=== PATIENT | female | born 1955 | race Caucasian/White ===

== ENCOUNTER → 2016-11-29 | Outpatient (CLI) | payer BC ==
[~2016-11-29] MED LIST: ASPEC325 PO; AZITTAB PO; CBCI IV; CZR50 PO; DULO-24 PO; FLUT0.15 NAE; INDA2.5T PO; LORA-741 PO; LOSA1TAB38 PO; MONT1TAB3 PO; OMG3 PO; OXYSR10 PO; PARO1TAB27 PO; PLMIN90 INH; PRLSR20 PO; PRVHFAIN INH; RFM300 PO; RXC5 PO; TRAZ100T29 PO; VTMD1000 PO
--- NOTE | 2016-11-30 08:27 | MAMMOGRAPHY REPORT ---
BILATERAL DIGITAL SCREENING MAMMOGRAM WITH CAD: 11/29/2016 CLINICAL HISTORY: Routine screening. Patient has no complaints. TECHNIQUE: Bilateral CC, MLO and repeat right MLO views were obtained. Current study was also evalu ated with a Computer Aided Detection (CAD) system. COMPARISON: Comparison is made to exams dated: 11/24/2015 mammogram, 10/21/2015 ultrasound, 08/05/2015 ultrasound, 08/05/2015 mammogram, 11/18/2014 mammogram, and 10/24/2013 mammogram - [facility]. BREAST COMPOSITION: There are scattered areas of fibroglandular density in both breasts. FINDINGS: No new suspicious mass, architectural distortion or cluster of microcalcifications is see n bilaterally. IMPRESSION: ACR BI-RADS CATEGORY 1: NEGATIVE There is no mammographic evidence of malignancy. A 1 year screening mammogram is recommended. The p atient will receive written notification of the results. Approximately 10% of breast cancers are not detected with mammography. A negative mammographic repor t should not delay biopsy if a clinically suggestive mass is present. Marita Gilliam M.D. ay/:11/29/2016 15:42:54 [employer] Agent: Radhika YOUSIF(Kade)(M), [facility] letter sent: Normal 1/2 BI-RADS Code: ACR BI-RADS Category 1: Negative
== END | disposition home or self-care (01) ==
LOC: C.MAMM 09:56
PROVIDERS: ATTEND Obstetrics & Gynecology
DX: Z12.31 Encounter for screening mammogram for malignant neoplasm of breast (principal)

== ENCOUNTER 2017-05-07 09:47 | Emergency (ER) | payer BC ==
[~2017-05-07] VITALS: Ht 154.9 cm; Wt 97.1 kg
[~2017-05-07 09:47] MED LIST changes: -AZITTAB PO; -DULO-24 PO; -INDA2.5T PO; -LORA-741 PO; -LOSA1TAB38 PO
[2017-05-07 09:56] VITALS: TEMP 36.9; Ht 154.9 cm; Wt 97.1 kg
[2017-05-07] MEDS ORDERED: SODIUM CHLORIDE 0.9% 1000ML 1,000 ML IV STA (10:18)
[2017-05-07] MEDS ORDERED: LIDOCAINE/EPINEPH/TETRACAINE 1 EA SYR EXT STA (10:18)
[2017-05-07] MEDS ORDERED: SODIUM CHLORIDE 0.9% 1000ML 1,000 ML IV ONE (10:18)
[2017-05-07] MEDS ORDERED: LOSA1TAB38 PO (10:25)
[2017-05-07] MEDS ORDERED: DULO-24 PO (10:26)
[2017-05-07] MEDS ORDERED: INDA2.5T PO (10:26)
[2017-05-07] MEDS ORDERED: LORA-741 PO (10:27)
[2017-05-07 11:07] LABS: HEMATOCRIT 40.8 % (37-47); MEAN CELL VOLUME 92.1 fL (80-100); MEAN CORPUSCULAR HEMOGLOBIN 31.6 pg (25-34); MEAN CORPUSCULAR HGB CONC 34.3 g/dl (32-36); MEAN PLATELET VOLUME 9.4 fL (7.4-10.4); PLATELET COUNT 214 K/uL (130-400); RED BLOOD COUNT 4.43 M/uL (4.2-5.4); WHITE BLOOD COUNT 10.75 K/uL (4.8-10.8)
--- NOTE | 2017-05-07 11:11 | DIAGNOSTIC IMAGING REPORT ---
CHEST ONE VIEW PORTABLE CLINICAL HISTORY: 61 years-old Female presenting with CHEST PAIN. TECHNIQUE: Portable upright AP view of the chest was obtained. COMPARISON: 04/16/2015. FINDINGS: Mild prominence of the cardiomediastinal silhouette in part due to mildly low lung volumes. Minimal hazy bibasilar opacities. No other focal infiltrate. No large effusion or pneumothorax. Osseous structures normal. Upper abdomen normal. IMPRESSION: 1. Mildly low lung volumes with hypoventilatory changes. No focal infiltrate. Electronically signed by: Mason Lynch M.D. 05/07/2017 11:10 AM Dictated Date/Time: 05/07/2017 11:09 AM
[2017-05-07 11:15] LABS: PROTHROMBIN TIME (PATIENT) 10.6 SECONDS (9.0-12.0)
[2017-05-07 11:23] LABS: BUN/CREATININE RATIO 19.9 (10-20); CALCIUM 9.2 mg/dl (8.5-10.1); CREATININE 0.83 mg/dl (0.60-1.20); POTASSIUM 3.3 mmol/L (3.5-5.1)
--- NOTE | 2017-05-07 11:23 | DIAGNOSTIC IMAGING REPORT ---
HEAD WITHOUT CONTRAST (CT) CLINICAL HISTORY: 61 years-old Female presenting with eval for trauma, dizziness, fall. TECHNIQUE: Multidetector CT imaging of the head was performed without the use of intravenous contrast. IV contrast: None. A dose lowering technique was used consistent with the principles of ALARA (as low as reasonably achievable). COMPARISON: None. CT DOSE (mGy.cm): The estimated cumulative dose is 614.27 mGy.cm. 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 Ventricles and sulci normal in size. Brain parenchyma normal in appearance with preserved holliday-white differentiation. No mass effect or midline shift. No hemorrhage or acute territorial infarct. No extra-axial fluid collection. Mild mucosal thickening in the bilateral maxillary sinuses with postsurgical changes likely of uncinectomies. Small focus of gas with associated irregularity of the cutis and minimal infiltration overlying the right frontal region. IMPRESSION: 1. No acute intracranial pathology. 2. Laceration and minimal superficial soft tissue contusion over the right frontal region. Electronically signed by: Mason Lynch M.D. 05/07/2017 11:22 AM Dictated Date/Time: 05/07/2017 11:19 AM
[2017-05-07 11:31] LABS: CKMB/CK RATIO 0.6 (0-3.0)
[2017-05-07 11:35] LABS: BASO % 0.2 %; BASO ABS # 0.02 K/uL (0-0.2); COMPLETE YES; EOS % 2.6 %; IG% 0.3 %; LYMPH % 20.8 %; LYMPH ABS # 2.24 K/uL (1.2-3.4); MONO % 6.1 %
[2017-05-07 12:19] VITALS: BP 161/106; PULSE 94; O2SAT 98
[2017-05-07] MEDS ORDERED: POTASSIUM CHLORIDE 10 MEQ TABCR PO STA (12:44)
[2017-05-07] MEDS ORDERED: AZITHROMYCIN 250 MG TAB PO ONE (12:45)
[2017-05-07] MEDS ORDERED: AZITTAB PO (12:48)
--- NOTE | 2017-05-07 15:43 | EMERGENCY ROOM VISIT NOTE ---
History Report prepared by Daniel: Jessy Sapp Under the Supervision of: Dr. Ezequiel Burgess M.D. First contact with patient: 10:08 Chief Complaint: DIZZY Stated Complaint: LAC ON L EYEBROW, ABNORMAL EKG Nursing Triage Summary: triage note: pt reports she has hx of vertigo. pt reports she got up this morning and became dizzy and fell. pt reports she fell onto the floor and has a cut on her forehead. pt reports she went to [facility] and they sent her to ed for further eval. pt reports she has had a cold for the past week and anytime she gets sick she has increased dizziness. History of Present Illness The patient is a 61 year old female who presents to the Emergency Room with complaints of constant dizziness beginning this morning. The patient states that she has a history of vertigo after a head injury a few years ago. She reports that she developed a cold 1 week ago and this morning she woke up and had an episode of dizziness and fell onto her face. She notes that she has a laceration on her forehead. The patient complains of a constant cough, congestion, and runny nose. She denies any LOC, shortness of breath, numbness, ear ache, weakness, chest pain, shortness of breath. The patient states that she went to [facility] and they sent her here to the ED after an abnormal EKG. She denies any history of blood clots and states that she does have a history of asthma. She notes that she did have palpitations earlier this year and had a Holter monitor test that was normal. Her tetanus shows up-to-date. Source of History: patient, transfer records, spouse/significant other Onset: this morning Position: other (global) Quality: other (dizziness) Timing: constant Associated Symptoms: No LOC, No sorethroat, No chest pain, No SOB, No weakness, No numbness Note: Pt complains of congestion, runny nose, fall, and laceration. She denies any ear ache. Review of Systems See HPI for pertinent positives & negatives. A total of 10 systems reviewed and were otherwise negative. 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 Nurse's notes were reviewed and I agree with. Family History Diabetes mellitus FHx: cancer Social History Smoking Status: Never Smoker Drug Use: none Marital Status: Housing Status: lives with family Occupation Status: employed Current/Historical Medications Scheduled Azithromycin (Zithromax Z-Paresh), 0 PO UD Budesonide (Pulmicort Flexhaler), 1 PUFF INH QAM Duloxetine HCl (Cymbalta), 40 MG PO HS Fish Oil (Fish Oil), 1 GM PO HS Fluticasone Propionate (Nasal) (Flonase Allergy Relief), 2 SPRAY NICK QAM Indapamide (Indapamide), 2.5 MG PO QAM Lorazepam (Ativan), 0.5 MG PO HS Losartan Potassium (Cozaar), 100 MG PO HS Montelukast Sodium (Singulair), 10 MG PO HS Omeprazole (Prilosec), 20 MG PO HS Trazodone Hcl (Trazodone), 150 MG PO HS Scheduled PRN Albuterol (Ventolin Hfa), 2 PUFF INH Q4 PRN for SOB/Wheezing Allergies Coded Allergies: Acetaminophen (Verified Allergy, Intermediate, SEVERE ITCHING AND NAUSEA, 05/07/17) Cephalexin (Verified Allergy, Intermediate, rash and itching, 05/07/17) Penicillins (Verified Allergy, Intermediate, rash and itching, 05/07/17) Physical Exam Vital Signs Date Time Temp Pulse Resp B/P (MAP) Pulse Ox O2 Delivery O2 Flow Rate FiO2 05/07/17 12:19 94 18 161/106 98 Room Air 05/07/17 09:56 36.9 90 18 170/97 92 Room Air Physical Exam General: Non-ill appearing middle aged female in no acute distress. HEENT: 4cm laceration to the right forehead within the right eyebrow. Pupils are equal round and reactive to light. Sclerae anicteric. Extraocular movements are intact. Oropharynx is pink with moist mucous membranes. No swelling of the mouth lips or tongue. Neck: Supple with a midline trachea. No meningeal signs or stiffness, no JVD or bruits. No Stridor. Chest: Clear to auscultation bilaterally. No wheezes or rhonchi. No increased work of breathing. Heart: regular rate and rhythm. Abdomen: Soft nontender, nondistended without rebound guarding or rigidity. Extremities: No cyanosis clubbing or edema. No calf tenderness or assymetry Spine/Back. Non tender to palpation. No CVA tenderness Skin: Good turgor without rashes. Neurologic exam: Cranial nerves two through 12 are intact. Motor and sensation are intact and symmetrical throughout. No tremor. 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 Ventricles and sulci normal in size. Brain parenchyma normal in appearance with preserved holliday-white differentiation. No mass effect or midline shift. No hemorrhage or acute territorial infarct. No extra-axial fluid collection. Mild mucosal thickening in the bilateral maxillary sinuses with postsurgical changes likely of uncinectomies. Small focus of gas with associated irregularity of the cutis and minimal infiltration overlying the right frontal region. IMPRESSION: 1. No acute intracranial pathology. 2. Laceration and minimal superficial soft tissue contusion over the right frontal region. Electronically signed by: Mason Lynch M.D. 05/07/2017 11:22 AM Dictated Date/Time: 05/07/2017 11:19 AM CHEST ONE VIEW PORTABLE FINDINGS: Mild prominence of the cardiomediastinal silhouette in part due to mildly low lung volumes. Minimal hazy bibasilar opacities. No other focal infiltrate. No large effusion or pneumothorax. Osseous structures normal. Upper abdomen normal. IMPRESSION: 1. Mildly low lung volumes with hypoventilatory changes. No focal infiltrate. Electronically signed by: Mason Lynch M.D. 05/07/2017 11:10 AM Dictated Date/Time: 05/07/2017 11:09 AM Laboratory Results 05/07/17 10:55 Red Blood Count 4.43, Mean Corpuscular Volume 92.1, Mean Corpuscular Hemoglobin 31.6, Mean Corpuscular Hemoglobin Concent 34.3, Mean Platelet Volume 9.4, Neutrophils (%) (Auto) 70.0, Lymphocytes (%) (Auto) 20.8, Monocytes (%) (Auto) 6.1, Eosinophils (%) (Auto) 2.6, Basophils (%) (Auto) 0.2, Neutrophils # (Auto) 7.52, Lymphocytes # (Auto) 2.24, Monocytes # (Auto) 0.66, Eosinophils # (Auto) 0.28, Basophils # (Auto) 0.02 05/07/17 10:55 Test 05/07/17 10:41 05/07/17 10:55 05/07/17 10:59 Influenza Type A Antigen Neg for Influ A (NEG) Influenza Type B Antigen Neg for Influ B (NEG) White Blood Count 10.75 K/uL (4.8-10.8) Red Blood Count 4.43 M/uL (4.2-5.4) Hemoglobin 14.0 g/dL (12.0-16.0) Hematocrit 40.8 % (37-47) Mean Corpuscular Volume 92.1 fL (80-100) Mean Corpuscular Hemoglobin 31.6 pg (25-34) Mean Corpuscular Hemoglobin Concent 34.3 g/dl (32-36) Platelet Count 214 K/uL (130-400) Mean Platelet Volume 9.4 fL (7.4-10.4) Neutrophils (%) (Auto) 70.0 % Lymphocytes (%) (Auto) 20.8 % Monocytes (%) (Auto) 6.1 % Eosinophils (%) (Auto) 2.6 % Basophils (%) (Auto) 0.2 % Neutrophils # (Auto) 7.52 K/uL (1.4-6.5) Lymphocytes # (Auto) 2.24 K/uL (1.2-3.4) Monocytes # (Auto) 0.66 K/uL (0.11-0.59) Eosinophils # (Auto) 0.28 K/uL (0-0.5) Basophils # (Auto) 0.02 K/uL (0-0.2) RDW Standard Deviation 46.4 fL (36.4-46.3) RDW Coefficient of Variation 13.7 % (11.5-14.5) Immature Granulocyte % (Auto) 0.3 % Immature Granulocyte # (Auto) 0.03 K/uL (0.00-0.02) Prothrombin Time 10.6 SECONDS (9.0-12.0) Prothromb Time International Ratio 1.0 (0.9-1.1) Activated Partial Thromboplast Time 26.8 SECONDS (21.0-31.0) Partial Thromboplastin Ratio 1.0 Anion Gap 8.0 mmol/L (3-11) Est Creatinine Clear Calc Drug Dose 76.8 ml/min Estimated GFR () 88.8 Estimated GFR (Non- 76.6 BUN/Creatinine Ratio 19.9 (10-20) Calcium Level 9.2 mg/dl (8.5-10.1) Total Bilirubin 0.4 mg/dl (0.2-1) Direct Bilirubin 0.1 mg/dl (0-0.2) Aspartate Amino Transf (AST/SGOT) 27 U/L (15-37) Alanine Aminotransferase (ALT/SGPT) 33 U/L (12-78) Alkaline Phosphatase 83 U/L (45-117) Total Creatine Kinase 422 U/L (26-192) Creatine Kinase MB 2.7 ng/ml (0.5-3.6) Creatine Kinase MB Ratio 0.6 (0-3.0) Total Protein 8.0 gm/dl (6.4-8.2) Albumin 3.9 gm/dl (3.4-5.0) Lipase 147 U/L (73-393) Bedside Troponin I < 0.030 ng/ml (0-0.045) Laboratory studies as stated above per my review. Medications Administered Medications (Trade) Dose Ordered Sig/Luana Route Start Time Stop Time Status Last Admin Dose Admin Sodium Chloride 1,000 ml @ 999 mls/hr Q1H1M STAT IV 05/07/17 10:18 05/07/17 11:19 DC 05/07/17 10:18 999 MLS/HR Sodium Chloride 1,000 ml @ 150 mls/hr Q6H40M ONCE IV 05/07/17 10:18 05/07/17 13:35 DC 05/07/17 12:19 150 MLS/HR Tetracaine/ Epinephrine/ Lidocaine (L.e.t. Gel 4%/ 1:100/0.5%) 1 ea NOW STAT EXT 05/07/17 10:18 05/07/17 10:22 DC 05/07/17 10:34 1 EA Azithromycin (Zithromax Tab) 500 mg NOW ONCE PO 05/07/17 12:45 05/07/17 12:46 DC 05/07/17 12:58 500 MG Potassium Chloride (Klor-Con M10) 40 meq NOW STAT PO 05/07/17 12:44 05/07/17 12:46 DC 05/07/17 12:58 40 MEQ Procedure Location: Face Total length: 4cm Complexity: Simple Verbal consent was obtained after the risks and benefits were explained, including but not limited to bleeding, scarring, infection, pain, and bone/joint /nerve damage. At this time, the risks of the procedure are less than the risks of NOT performing the procedure. A time out was taken and the correct patient and site identified. The skin was prepped with betadine. The target area was anesthetized with L.e.t gel. Copious irrigation was performed using normal saline. The skin was re-prepped with betadine and a sterile field set. The wound was explored for foreign bodies and none found. Examination revealed no injury to deep structures such as tendons, bone, or significant blood vessels. Debridement was not performed. The wound edges were approximated using 8, 5-0 simple interrupted nylon sutures. Hemostasis and excellent approximation was achieved. Antibacterial ointment and a sterile dressing applied. Detailed wound care instructions and signs and symptoms of infection reviewed with the patient. No complications and the patient tolerated the procedure well. ECG Indication: weakness Rate (beats per minute): 84 Rhythm: normal sinus Findings: PVC, Q waves (old in lead 3), other (short NM interval, nonspecific T wave abnormalities) Comparison ECG Date: 04/16/2017 Change: no significant change Change: EKG from [employer]: Normal Sinus, 72, Q wave in lead 3, T wave inversions anteriorly, compared to 04/16/2017 T wave inversions are slightly more pronounced. ED Course 1008: Past medical records reviewed. The patient was evaluated in room B4, and a complete history and physical examination were performed. 1018: Let Gel 4%/1:100/0.5% 1 ea EXT, Sodium Chloride 1000 ml @ 150 mls/hr IV, Sodium Chloride 1000 ml @ 999 mls/hr IV. 1244: Potassium Chloride 40meq PO, Zithromax Tab 500mg PO. 1300: Upon reevaluation, the patient is doing well. I discussed the results and treatment plan with the patient. She verbalized agreement of the treatment plan. The patient was discharged home. Medical Decision Differentials include, but are not limited to; laceration, pneumonia, sepsis, cardiac disease, PE, trauma, electrolyte or metabolic abnormality. This patient comes in as described above. She has a history of feeling dizzy. It got worse after she was having cough and URI type symptoms. She has a dry hacking cough. She has no wheezing on exam. She is non-hypoxemic. She is afebrile. It sounds like she fell because she is feeling dizzy . She had no syncope. Her EKG does not show anything to suggest acute cardiac event. She does have some nonspecific T-wave abnormalities anteriorly which are unchanged from old EKGs. She has old Q waves in one lead. Her troponin is not elevated CKs minimally elevated but MB fraction is not. She has no acute electrolyte or metabolic abnormality was with exception of potassium mildly low at 3.3. She was given 40 milliequivalents of by mouth potassium here. I closed her lacerations outlined above. She has a tetanus booster that's up-to-date. Bacitracin and sterile dressing were applied. She's have those stitches removed in 5 days. She is to rest and drink plenty is with her ongoing symptoms . I will put her on azithromycin as she has is an asthmatic. It is possible was could be pertussis related. Influenza was negative. She should rest and drink plenty fluids. Be careful getting up and down. Return if worsening of symptoms, any new problems or concerns. She is happy the plan and discharged to home. Medication Reconcilliation Current Medication List: was personally reviewed by me Blood Pressure Screening Patient's blood pressure: Elevated blood pressure Blood pressure disposition: Referred to PCP Impression Primary Impression: Dizziness Additional Impressions: Facial laceration Bronchitis Scribe Attestation The scribe's documentation has been prepared under my direction and personally reviewed by me in its entirety. I confirm that the note above accurately reflects all work, treatment, procedures, and medical decision making performed by me. Departure Information Dispostion Home / Self-Care Prescriptions Azithromycin (ZITHROMAX Z-PARESH) 250 Mg Tab 0 PO UD, #1 PKT Prov: Ezequiel Burgess M.D. 05/07/17 Referrals Harjeet Garcia M.D. (PCP) Forms HOME CARE DOCUMENTATION FORM, IMPORTANT VISIT INFORMATION Patient Instructions My [facility] Additional Instructions Rest. Drink plenty of fluids. Return in 5 days for suture removal Return sooner if any problems with the wound such as redness, pus, fever, drainage Use azithromycin Z-Paresh as directedantibiotic Increase her dietary potassium May use [id number]-clojued cough medications such as Robitussin-DM Return to the ER if: Worsening of symptoms, fever chills, chest pain, shortness breath, any new problems or concerns. Follow-up with your doctor in 1-2 days for recheck Problem Qualifiers
== END 2017-05-07 13:01 | disposition home or self-care (01) ==
LOC: C.EDB 09:48
DX: R42 Dizziness and giddiness (principal); S01.81XA Laceration without foreign body of other part of head, initial encounter; W19.XXXA Unspecified fall, initial encounter; J45.909 Unspecified asthma, uncomplicated; Z86.19 Personal history of other infectious and parasitic diseases; Z79.899 Other long term (current) drug therapy; Z88.0 Allergy status to penicillin; Z88.6 Allergy status to analgesic agent; Z88.8 Allergy status to other drugs, medicaments and biological substances; Z83.3 Family history of diabetes mellitus; Z80.9 Family history of malignant neoplasm, unspecified

== ENCOUNTER 2017-10-20 06:50 | Inpatient (IN) | payer BC, OTHER ==
[2017-10-03 08:58] VITALS: BMI 37.0
--- NOTE | 2017-10-03 09:35 | PAT Medication Instructions ---
Service Date Oct 03, 2017. Current Home Medication List Acyclovir (Zovirax), 800 MG PO UD PRN for COLD SORE Albuterol (Ventolin Hfa), 2 PUFF INH Q4 PRN for SOB/Wheezing Ascorbic Acid (Vitamin C), 1 TAB PO QAM B-Complex Vitamins (B Complex), 1 CAP PO QAM Budesonide (Inhalation) (Pulmicort Flexhaler), 1 PUFFS INH QAM Cholecalciferol (Vitamin D3), 1 TAB PO QAM Duloxetine HCl (Cymbalta), 40 MG PO HS Fish Oil (Fish Oil), 1 GM PO QAM Fluticasone Propionate (Nasal) (Flonase Allergy Relief), 2 SPRAY NICK QAM Ibuprofen (Motrin), 600 MG PO TID PRN for Pain Indapamide (Indapamide), 2.5 MG PO QAM Lorazepam (Ativan), 0.5 MG PO HS Losartan Potassium (Cozaar), 100 MG PO HS Montelukast Sodium (Singulair), 10 MG PO HS Omeprazole (Prilosec), 20 MG PO BID Potassium Chloride (Micro-K Ext Rel), 10 MEQ PO QAM Trazodone Hcl (Trazodone), 150 MG PO HS Medication Instructions For Your Scheduled Surgery - Check with surgeon for instructions: Ibuprofen (Motrin), 600 MG PO TID PRN for Pain - Hold the following medications 2 weeks prior to surgery: Fish Oil (Fish Oil), 1 GM PO QAM - Hold the following medications 24 hours prior to surgery: Losartan Potassium (Cozaar), 100 MG PO HS - Hold the following medications the morning of surgery: Acyclovir (Zovirax), 800 MG PO UD PRN for COLD SORE Ascorbic Acid (Vitamin C), 1 TAB PO QAM B-Complex Vitamins (B Complex), 1 CAP PO QAM Cholecalciferol (Vitamin D3), 1 TAB PO QAM Indapamide (Indapamide), 2.5 MG PO QAM Potassium Chloride (Micro-K Ext Rel), 10 MEQ PO QAM - Take the following medications the morning of surgery with a sip of water: Omeprazole (Prilosec), 20 MG PO BID Budesonide (Inhalation) (Pulmicort Flexhaler), 1 PUFFS INH QAM Albuterol (Ventolin Hfa), 2 PUFF INH Q4 PRN for SOB/Wheezing (if needed) Fluticasone Propionate (Nasal) (Flonase Allergy Relief), 2 SPRAY NICK QAM - Take the following medications as scheduled the night before surgery: Trazodone Hcl (Trazodone), 150 MG PO HS Omeprazole (Prilosec), 20 MG PO BID Montelukast Sodium (Singulair), 10 MG PO HS Lorazepam (Ativan), 0.5 MG PO HS Duloxetine HCl (Cymbalta), 40 MG PO HS Albuterol (Ventolin Hfa), 2 PUFF INH Q4 PRN for SOB/Wheezing (if needed) Acyclovir (Zovirax), 800 MG PO UD PRN for COLD SORE (if needed) If you have any questions please call us at [phone] or [phone] or [phone]
[2017-10-03 10:07] LABS: BASO % 0.5 %; BASO ABS # 0.03 K/uL (0-0.2); EOS % 2.7 %; EOS ABS # 0.17 K/uL (0-0.5); HEMATOCRIT 37.2 % (37-47); HEMOGLOBIN 12.5 g/dL (12.0-16.0); IG# 0.02 K/uL (0.00-0.02); LYMPH % 22.2 %; LYMPH ABS # 1.41 K/uL (1.2-3.4); MEAN CELL VOLUME 92.3 fL (80-100); MEAN CORPUSCULAR HGB CONC 33.6 g/dl (32-36); MEAN PLATELET VOLUME 9.6 fL (7.4-10.4); MONO % 6.3 %; NEUT ABS # 4.31 K/uL (1.4-6.5); PLATELET COUNT 232 K/uL (130-400); RED CELL DISTRIBUTION WIDTH CV 13.6 % (11.5-14.5); WHITE BLOOD COUNT 6.34 K/uL (4.8-10.8)
--- NOTE | 2017-10-03 10:21 | DIAGNOSTIC IMAGING REPORT ---
CHEST 2 VIEWS ROUTINE CLINICAL HISTORY: Preoperative chest. Cough. Asthma. COMPARISON STUDY: 05/07/2017 FINDINGS: The cardiac and mediastinal contours are normal. There is no evidence of focal pulmonary consolidation. There is no evidence of failure. No pleural effusions are visualized.[ IMPRESSION: No active disease in the chest. Electronically signed by: Clark Ruvalcaba M.D. 10/03/2017 10:19 AM Dictated Date/Time: 10/03/2017 10:19 AM
[2017-10-03 10:22] LABS: PTT PATIENT 24.6 SECONDS (21.0-31.0)
[2017-10-03 11:37] LABS: CALCIUM 9.7 mg/dl (8.5-10.1); CREATININE 0.66 mg/dl (0.60-1.20); POTASSIUM 3.9 mmol/L (3.5-5.1)
--- NOTE | 2017-10-19 07:10 | HISTORY & PHYSICAL EXAMINATION ---
DATE OF ADMISSION: 10/20/2017 CHIEF COMPLAINT: Primary osteoarthritis of the right hip. HISTORY OF PRESENT ILLNESS: Marivel is a pleasant 61-year-old female who presented to my office with complaints of chronic increasing right hip pain. X-rays and clinical examination were diagnostic for primary osteoarthritis of the right hip. She was complaining of sharp stabbing sensations in the area of her groin and increased difficulty walking any distance. After failing extensive conservative treatment, she has elected to proceed with a right total hip arthroplasty. PAST MEDICAL HISTORY: Significant for obesity, hypertension, melanoma, GERD and asthma. PAST SURGICAL HISTORY: Significant for ovarian dermoid, right total knee arthroplasty in 2014, then poly exchange and I&D afterwards that went on to heal fine. Excision of melanoma. ALLERGIES: PENICILLIN, TYLENOL, KEFLEX. MEDICATIONS: Includes losartan, indapamide, Prilosec, Singulair, Cymbalta, Pulmicort, Nasacort, ibuprofen, trazodone, Ativan and ProAir. FAMILY HISTORY: Significant for heart disease, diabetes, breast cancer, skin cancer. SOCIAL HISTORY: She is , has 1-2 drinks 3 days a week, was very active prior to her hip pain. 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 REVIEW OF SYSTEMS: Complains mostly of right hip and groin pain. PHYSICAL EXAMINATION: GENERAL: She is awake, alert and orient x3. She is in no apparent distress. She is very pleasant. HEENT: Pupils equal, round, reactive to light. Extraocular motions are intact. Oral mucosa pink and moist. HEART: Regular rate per radial pulse. LUNGS: Estelle symmetrically bilaterally with no audible breath sounds. ABDOMEN: Soft, nontender, nondistended. MUSCULOSKELETAL: On physical examination of her hip, she is able to ambulate independently, but she does have a slight limp. She has severe pain with forced internal and external rotation of her hip. She has decreased motion compared to the contralateral side. Her leg lengths are essentially equal. She has no pain over the greater trochanteric bursa. IMAGING: X-rays of the hip do show advanced osteoarthritis with complete joint space collapse, bone on bone arthritis and osteophyte formation. IMPRESSION: Primary osteoarthritis of the right hip. PLAN: We will proceed with a lateral right total hip arthroplasty. Postoperatively, she will be started on aspirin for DVT prophylaxis and kept in the hospital for postoperative medical management.
[~2017-10-20] VITALS: Ht 157.5 cm; Wt 92.6 kg
[2017-10-20] VITALS (8 sets, daily range): BP systolic 121–165; BP diastolic 78–95; PULSE 78–92; TEMP 36.4–37; O2SAT 93–99; Ht 157.5 cm; Wt 92.6 kg
[~2017-10-20 06:50] MED LIST changes: +ACETAMINOPHEN 500 MG TAB PO SCH; +ACYC-223 PO; +ASCA500 PO; -ASPEC325 PO; +B-CO1CAP3 PO; +BUDE180I INH; -CBCI IV; +CEFAZOLIN 2000MG IV PUSH 15 ML IV SCH; +CHOL1000 PO; -CZR50 PO; +DULO-24 PO; +FAMOTIDINE 20 MG TAB PO SCH; +GABAPENTIN 300 MG CAP PO SCH; +IBUP600T44 PO; +INDA2.5T PO; +LACTATED RINGER'S 1000ML 1,000 ML IV SCH; +LACTATED RINGER'S 1000ML IV SCH; +LORA-741 PO; +LOSA1TAB38 PO; -OXYSR10 PO; -PARO1TAB27 PO; -PLMIN90 INH; +POTA10CA28 PO; -RFM300 PO; +ROPIVACAINE 5MG/ML 30 ML 150 MG, BUPIVACAINE 0.5% MPF INJ 30 ML, EpINEphrine HCL INJ 0.... INFIL SCH; -RXC5 PO; -VTMD1000 PO
--- NOTE | 2017-10-20 06:53 | History & Physical Bridge Note ---
H&P Re-Evaluation Bridge Note: I have examined the patient, reviewed the History & Physical and in the interval since the performance of the History & Physical I have noted the following changes of clinical significance: No changes noted
[2017-10-20] MEDS ORDERED: BUPIVACAINE 0.5 % 5 MG/1 ML PF 10ML VIAL ONE (07:19)
[2017-10-20] MEDS ORDERED: ONDANSETRON INJ 2 MG/ML 2 ML VIAL IV PRN ×2 (08:00→12:15)
[2017-10-20] MEDS ORDERED: PROMETHAZINE HCL INJ 12.5 MG in SODIUM CHLORIDE 0.9% 50ML 50 ML IV PRN (08:00)
[2017-10-20] MEDS ORDERED: ATROPINE SULFATE 0.1 MG/ML 5ML SYR IV PRN (08:00)
[2017-10-20] MEDS ORDERED: FENTANYL CITRATE INJ 50 MCG/1 ML 2 ML VIAL IV PRN (08:00)
[2017-10-20] MEDS ORDERED: PHENYLEPHRINE 100MCG/ML 5ML SYR IV PRN (08:00)
[2017-10-20] MEDS ORDERED: HYDROmorphone INJ 1 MG/ML SYR IV PRN (08:00)
[2017-10-20] MEDS ORDERED: EpHEDrine SULFATE INJ 50 MG/ML AMP IV PRN (08:00)
[2017-10-20] MEDS ORDERED: CYCL5TAB PO (08:19)
[2017-10-20] MEDS ORDERED: OXYC1TAB3 PO (08:19)
[2017-10-20] MEDS ORDERED: MIDAZOLAM HCL 1 MG/ML 2ML VIAL ONE (08:53)
[2017-10-20] MEDS ORDERED: FENTANYL CITRATE INJ 50 MCG/1 ML 2 ML VIAL ONE ×2 (08:54→11:56)
[2017-10-20] MEDS ORDERED: CLINDAMYCIN 600 MG/54 ML D5W IV ONE (09:13)
[2017-10-20] MEDS ORDERED: ORTHO JOINT ANESTHETIC ONE (09:20)
[2017-10-20] MEDS ORDERED: BACITRACIN 50000 UNIT VIAL ONE (09:20)
[2017-10-20] MEDS: TRANEXAMIC ACID INJ 1,000 MG x 2 Bags IV SCH ×4 (09:26→14:24)
[2017-10-20] MEDS ORDERED: NURSING VERBAL MED ORDER ONE (09:30)
[2017-10-20] MEDS ORDERED: PROPOFOL IV EMULSION 10 MG/ML 20 ML VIAL IV ONE (10:18)
[2017-10-20] MEDS ORDERED: PHENYLEPHRINE 100MCG/ML 5ML SYR ONE ×2 (10:18→11:14)
[2017-10-20] MEDS ORDERED: EpHEDrine SULFATE 50MG/5ML SYR ONE (10:18)
--- NOTE | 2017-10-20 11:47 | DIAGNOSTIC IMAGING REPORT ---
R HIP UNILATERAL 1 VIEW HISTORY: 61 years-old Female RT LATERAL HIP acute right hip pain. Status post right hip arthroplasty. Degenerative joint disease. COMPARISON: Right hip radiographs 08/18/2017 TECHNIQUE: Portable AP view of the right hip FINDINGS: Postoperative changes from right hip total joint arthroplasty with satisfactory alignment. No periprosthetic fracture. Expected postsurgical soft tissue swelling and deep tissue air about the right hip. The imaged right hemipelvis appears intact. IMPRESSION: Right hip arthroplasty with satisfactory alignment The above report was generated using voice recognition software. It may contain grammatical, syntax or spelling errors. Electronically signed by: Chauncey Webster M.D. 10/20/2017 11:45 AM Dictated Date/Time: 10/20/2017 11:44 AM
--- NOTE | 2017-10-20 12:06 | [facility] Post Operative Brief Note ---
Immediate Operative Summary Operative Date Oct 20, 2017. Pre-Operative Diagnosis Primary Osteoarthritis of Right Hip Post-Operative Diagnosis Primary Osteoarthritis of Right Hip Procedure(s) Performed Right Total Hip Arthroplasty, Uncemented Surgeon Dr. Alcantara [employer] Technician Surgeon(s) Andrey Whitehead PA-C Estimated Blood Loss 250cc Findings Consistent with Post-Op Diagnosis Specimens A: Right femoral head Drains None Anesthesia Type Spinal MAC Complication(s) none Disposition Disposition: Recovery Room / PACU
[2017-10-20] MEDS ORDERED: MoRPHine SULFATE 2 MG/ML CARP IV PRN (12:15)
[2017-10-20] MEDS ORDERED: MAGNESIUM HYDROXIDE SUSP 30 ML UDC PO PRN (12:15)
[2017-10-20] MEDS ORDERED: CYCLOBENZAPRINE HCL 10 MG TAB PO PRN (12:15)
[2017-10-20] MEDS ORDERED: ALBUTEROL HFA 8 GM INHALER INH PRN (12:15)
[2017-10-20] MEDS ORDERED: SOD PHOSPHATE/SOD BIPHOSPHATE ENEMA 132 ML BTL PR PRN (12:15)
[2017-10-20] MEDS ORDERED: BISACODYL 10 MG SUPP PR PRN (12:15)
[2017-10-20] MEDS ORDERED: METOCLOPRAMIDE HCL INJ 5 MG/ML 2 ML VIAL IV PRN (12:15)
--- NOTE | 2017-10-20 13:26 | Anesthesiology Progress Note ---
Anesthesia Post Op Note Date & Time Oct 20, 2017 at 13:26 Vital Signs Pain Intensity: 0 Vital Signs Past 12 Hours Date Time Temp Pulse Resp B/P (MAP) Pulse Ox O2 Delivery O2 Flow Rate FiO2 10/20/17 13:15 36.3 72 16 141/71 97 Nasal Cannula 2 10/20/17 13:05 36.3 76 16 138/74 96 Nasal Cannula 2 10/20/17 12:55 36.3 78 16 132/75 95 Nasal Cannula 2 10/20/17 12:45 79 16 125/71 95 Nasal Cannula 2 10/20/17 12:35 74 16 132/79 100 Oxymask 10 10/20/17 12:26 36.5 85 16 122/71 100 Oxymask 10 10/20/17 08:02 37.0 90 20 165/95 93 Room Air Notes Mental Status: alert / awake / arousable, participated in evaluation Pt Amnestic to Procedure: Yes Nausea / Vomiting: adequately controlled Pain: adequately controlled Airway Patency, RR, SpO2: stable & adequate BP & HR: stable & adequate Hydration State: stable & adequate Neuraxial Anesthesia: was administered, sensory block is resolving Anesthetic Complications: no major complications apparent
--- NOTE | 2017-10-20 13:30 | DIAGNOSTIC IMAGING REPORT ---
R PELVIS/UNILATERAL HIP 1 VIEW CLINICAL HISTORY: IN PACU - A/P PELVIS and LATERAL HIP INCLUDING ALL OF IMPLANT COMPARISON: None. DISCUSSION: Total right hip prosthetic. Good contact between prosthetic and underlying bone. No evidence for fracture. There is no evidence for soft tissue swelling. IMPRESSION: Anatomic alignment posttotal right hip arthroplasty. The above report was generated using voice recognition software. It may contain grammatical, syntax or spelling errors. Electronically signed by: Geoffrey Espinoza M.D. 10/20/2017 1:28 PM Dictated Date/Time: 10/20/2017 1:28 PM
[2017-10-20] MEDS: BUDESONIDE 90 MCG INH INH SCH (14:00)
[2017-10-20] MEDS: SODIUM CHLORIDE 0.9% 1000ML 1,000 ML IV SCH ×2 (14:37→23:32)
[2017-10-20] MEDS: KETOROLAC TROMETHAMINE 15 MG/ML VIAL IV. SCH ×2 (15:54→21:14)
--- NOTE | 2017-10-20 16:31 | OPERATIVE REPORT ---
DATE OF OPERATION: 10/20/2017 PREOPERATIVE DIAGNOSIS: Primary osteoarthritis of the right hip. POSTOPERATIVE DIAGNOSIS: Same. PROCEDURE: Right total hip arthroplasty. SURGEON: Dr. Ezequiel Alcantara. BENCH EXAMINER: Олег Whitehead PA-C, whose assistance was necessary for retraction and closure. ANESTHESIA: Spinal. COMPLICATIONS: None. CONDITION: Stable to PACU. IMPLANTS USED: I used a [employer]omet Taperloc total hip arthroplasty system with a size 48-mm G7 cup with 2 screws, a size 4-mm standard offset Taperloc stem, a 32 ceramic head with a standard neck and a high wall G7 polyethylene insert. INDICATIONS: Marivel is a pleasant 61-year-old female who presented to my office with chronic right hip and groin pain. X-rays and clinical examination were diagnostic for primary osteoarthritis of the right hip. After failing conservative treatment, she elected to undergo a right total hip arthroplasty. DESCRIPTION OF PROCEDURE: On 10/20/2017, she arrived at [facility] for the above procedure. She was seen in the preoperative holding area and the operative extremity was identified and signed. She was given a preoperative antibiotic and a spinal anesthetic. She was taken back to the operating room, laid on table in supine position and given basic sedation. She was then put in the lateral decubitus position. The right hip was then prepped and draped in sterile fashion. Time-out was done and the patient's operative extremity properly identified. An anterolateral approach was used. Dissection was taken down through the fascia and the abductors were exposed. The anterior third of the abductors were released off the greater trochanter and tagged for later repair. The capsule was then excised and the hip was dislocated. The femoral neck was then resected at the intertrochanteric line and the femoral head was removed. The glenoid was then exposed. Time was spent doing a complete circumferential capsular and labral release. Sequential reaming of the acetabulum up to a 47 reamer was done. This gave good circumferential bleeding bone and a 48-mm G7 cup was then impacted into place and 2 screws were placed. A G7 high wall vitamin E liner was then snapped into place. The proximal femur was then exposed. Sequential broaching up to a size 4 broach was done. A standard head and neck assembly was applied. The hip was then reduced, brought through a full range of motion and felt to be stable. A single flat plate x-ray was taken and I was happy with the overall alignment and sizing of the components. The hip was then dislocated. The broach was removed. The final size 4 Taperloc stem was impacted into place. A standard 32-mm ceramic head with a 0 neck was then impacted into place. The hip was then reduced, brought through a full range of motion and felt to be stable. The abductors were then tenodesed back to the greater trochanter with transosseous FiberWire sutures. The fascia was then closed with #1 PDS suture. Skin was closed with 2-0 Vicryl and gwendolyn. A Prevena VAC dressing was then applied. She was then transferred to a hospital bed and taken to the postanesthesia care in stable condition. She tolerated the procedure well. I attest to the content of the Intraoperative Record and any orders documented therein. Any exception s are noted below.
[2017-10-20] MEDS: CLINDAMYCIN IV 600 MG in DEXTROSE 5% 50ML 50 ML IV SCH (17:52)
[2017-10-20] MEDS: OXYCODONE HCL IR 5 MG TAB (IMMEDIATE RELEASE) PO PRN ×2 (18:53→23:32)
[2017-10-20] MEDS: LORAZEPAM 0.5 MG TAB PO SCH (21:00)
[2017-10-20] MEDS: MONTELUKAST SOD 10 MG TAB PO SCH (21:17)
[2017-10-20] MEDS: LOSARTAN POTASSIUM 50 MG TAB PO SCH (21:17)
[2017-10-20] MEDS: DOCUSATE SODIUM 100 MG CAP PO SCH (21:17)
[2017-10-20] MEDS: TRAZODONE HCL 100 MG TAB PO SCH (21:17)
[2017-10-20] MEDS: PANTOprazole SOD 40 MG TAB PO SCH (21:17)
[2017-10-20] MEDS: ASPIRIN 325 MG ECTAB PO SCH (21:17)
[2017-10-20] MEDS: DULOXETINE HCL 20 MG CAP PO SCH (21:17)
[2017-10-20] MEDS: SENNA 8.6 MG TAB PO SCH (21:17)
[2017-10-21 02:30] VITALS: BP 149/82; PULSE 88; TEMP 36.7; O2SAT 95
[2017-10-21] MEDS: CLINDAMYCIN IV 600 MG in DEXTROSE 5% 50ML 50 ML IV SCH (02:32)
[2017-10-21] MEDS: KETOROLAC TROMETHAMINE 15 MG/ML VIAL IV. SCH ×2 (03:45→10:01)
[2017-10-21 06:13] LABS: BASO % 0.1 %; BASO ABS # 0.01 K/uL (0-0.2); HEMATOCRIT 29.2 % (37-47); IG# 0.05 K/uL (0.00-0.02); LYMPH % 9.1 %; LYMPH ABS # 1.07 K/uL (1.2-3.4); MEAN CELL VOLUME 91.5 fL (80-100); MEAN CORPUSCULAR HEMOGLOBIN 31.3 pg (25-34); MEAN CORPUSCULAR HGB CONC 34.2 g/dl (32-36); MEAN PLATELET VOLUME 9.3 fL (7.4-10.4); MONO % 8.6 %; MONO ABS # 1.01 K/uL (0.11-0.59); NEUT % 81.8 %; NEUT ABS # 9.58 K/uL (1.4-6.5); PLATELET COUNT 219 K/uL (130-400); RED CELL DISTRIBUTION WIDTH CV 13.3 % (11.5-14.5); RED CELL DISTRIBUTION WIDTH SD 44.7 fL (36.4-46.3); WHITE BLOOD COUNT 11.72 K/uL (4.8-10.8)
[2017-10-21 06:50] LABS: CALCIUM 8.2 mg/dl (8.5-10.1); CREATININE 0.52 mg/dl (0.60-1.20); POTASSIUM 3.6 mmol/L (3.5-5.1)
[2017-10-21 08:04] VITALS: BP 127/79; PULSE 75; TEMP 36.8; O2SAT 93
[2017-10-21] MEDS: OXYCODONE HCL IR 5 MG TAB (IMMEDIATE RELEASE) PO PRN (08:24)
[2017-10-21] MEDS: MULTIVITAMIN TAB PO SCH (08:24)
[2017-10-21] MEDS: PANTOprazole SOD 40 MG TAB PO SCH ×2 (08:25→21:00)
[2017-10-21] MEDS: CHOLECALCIFEROL 1000 INTER.UNIT TAB PO SCH (08:25)
[2017-10-21] MEDS: POTASSIUM CHLORIDE 10 MEQ TABCR PO SCH (08:25)
[2017-10-21] MEDS: ASPIRIN 325 MG ECTAB PO SCH ×2 (08:26→21:00)
[2017-10-21] MEDS: ASCORBIC ACID 500 MG TAB PO SCH (08:26)
[2017-10-21] MEDS: INDAPAMIDE 1.25 MG TAB PO SCH (08:26)
[2017-10-21] MEDS: BUDESONIDE 90 MCG INH INH SCH (08:27)
[2017-10-21] MEDS: FLUTICASONE PROPIONATE NA SPR 16 GM BTL NAE SCH (08:27)
[2017-10-21] MEDS ORDERED: KETOROLAC TROMETHAMINE 15 MG/ML VIAL IV. ONE (10:30)
[2017-10-21] MEDS: DOCUSATE SODIUM 100 MG CAP PO SCH ×2 (10:33→21:00)
[2017-10-21] MEDS: SODIUM CHLORIDE 0.9% 1000ML 1,000 ML IV SCH (10:33)
--- NOTE | 2017-10-21 10:54 | PROGRESS NOTE ---
DATE: 10/21/2017 CHIEF COMPLAINT: Status post right total hip arthroplasty postop day #1. PROGRESS: Marivel was seen and examined at bedside today. She is very sore today and said she had trouble sleeping last night. She has pain and spasms in her right hip. She was able to walk around the nurses' station last evening. She is happy that her knee pain is gone. She has no other complaints. PHYSICAL EXAMINATION: She is lying in bed. The Prevena VAC dressing is to suction. Her leg lengths are equal. She has active dorsiflexion, plantarflexion of her right ankle and sensation is intact throughout. LABORATORY DATA: She has an H&H today of 10.0 and 29.2. Her glucose is 139. Her vital signs are all stable on room air and she has a Waite catheter in which was about to be removed. X-rays postoperatively of the right hip show the prosthesis to be in anatomic alignment without any evidence of fracture, dislocation or loosening. IMPRESSION: Status post right total hip arthroplasty postop day #1. PLAN: At this point, she is doing well as expected. I am encouraged that she was able to get up and ambulate around the nurses' station but I am not surprised she is having a lot of soreness in her hip. We will continue aspirin for DVT prophylaxis. I am going to change her pain meds to Flexeril 10 mg every 8 hours as needed. I am going to up her Toradol to 30 mg every 8 hours and stop her oxycodone and start her up on Dilaudid 4 mg orally every 4 hours as needed. We will see how she does with this. If her pain is better controlled and she is working well with therapy, we will plan to discharge her to home tomorrow.
[2017-10-21] MEDS: CYCLOBENZAPRINE HCL 10 MG TAB PO PRN ×2 (12:43→21:01)
[2017-10-21 14:39] VITALS: BP 126/71; PULSE 87; TEMP 36.9; O2SAT 91
[2017-10-21] MEDS: HYDROmorphone HCL 2 MG TAB PO PRN (15:26)
[2017-10-21 15:50] VITALS: BP 126/66; PULSE 87; TEMP 36.5; O2SAT 94
[2017-10-21] MEDS: KETOROLAC TROMETHAMINE 30 MG/ML VIAL IV. SCH ×2 (16:27→20:59)
[2017-10-21] MEDS: LORAZEPAM 0.5 MG TAB PO SCH (20:37)
[2017-10-21] MEDS: DULOXETINE HCL 20 MG CAP PO SCH (20:56)
[2017-10-21] MEDS: TRAZODONE HCL 100 MG TAB PO SCH (20:56)
[2017-10-21] MEDS: MONTELUKAST SOD 10 MG TAB PO SCH (20:59)
[2017-10-21] MEDS: SENNA 8.6 MG TAB PO SCH (21:00)
[2017-10-21] MEDS: LOSARTAN POTASSIUM 50 MG TAB PO SCH (21:00)
[2017-10-21 22:33] VITALS: BP 116/73; PULSE 79; TEMP 36.9; O2SAT 92
[2017-10-22] MEDS: KETOROLAC TROMETHAMINE 30 MG/ML VIAL IV. SCH ×2 (03:23→10:12)
[2017-10-22 06:31] VITALS: BP 119/76; PULSE 72; TEMP 36.8; O2SAT 95
[2017-10-22] MEDS: BUDESONIDE 90 MCG INH INH SCH (07:28)
[2017-10-22] MEDS: CYCLOBENZAPRINE HCL 10 MG TAB PO PRN (07:28)
[2017-10-22] MEDS: FLUTICASONE PROPIONATE NA SPR 16 GM BTL NAE SCH (07:28)
[2017-10-22] MEDS: PANTOprazole SOD 40 MG TAB PO SCH (07:29)
[2017-10-22] MEDS: MULTIVITAMIN TAB PO SCH (07:29)
[2017-10-22] MEDS: INDAPAMIDE 1.25 MG TAB PO SCH (07:29)
[2017-10-22] MEDS: ASPIRIN 325 MG ECTAB PO SCH (07:30)
[2017-10-22] MEDS: DOCUSATE SODIUM 100 MG CAP PO SCH (07:30)
[2017-10-22] MEDS: POTASSIUM CHLORIDE 10 MEQ TABCR PO SCH (07:30)
[2017-10-22] MEDS: CHOLECALCIFEROL 1000 INTER.UNIT TAB PO SCH (07:30)
[2017-10-22] MEDS: ASCORBIC ACID 500 MG TAB PO SCH (07:31)
[2017-10-22] MEDS: HYDROmorphone HCL 2 MG TAB PO PRN (08:59)
[2017-10-22] MEDS ORDERED: DLD/2 PO (09:42)
[2017-10-22] MEDS ORDERED: ASPEC325 PO (09:42)
--- NOTE | 2017-10-22 09:43 | Discharge Instructions ---
Discharge Instructions Date of Service Oct 22, 2017. Admission Reason for Admission: Right Hip Degenerative Joint Disease Discharge Discharge Diagnosis / Problem: Right Total Hip Discharge Goals Goal(s): Decrease discomfort, Improve function Activity Recommendations Activity Limitations: as noted below . Instructions / Follow-Up Instructions / Follow-Up Activity and Therapy Recommendations: * If you are using [facility] then Physical Therapy will be provided until they feel you are ready to start Outpatient Physical Therapy. If you are not using a Home Health agency then Outpatient Physical Therapy should start about 3-5 days from your day of surgery. Therapy will last about 3-6 weeks * You were shown a series of exercises in the hospital. Do these exercises three times each day including the exercises you were shown in physical therapy. * Get up and walk several times each day.~ For the first four weeks, try not to stand or walk for more than one hour at a time. If you do stand or walk for more than one hour, you will not hurt anything, but your leg will likely swell.~ ~ * As you feel comfortable, you may change from the walker or crutches to a cane and~then to independent walking. Medications: * Narcotic You will likely be sent home from the hospital with a prescription for the narcotic pain medication that worked best throughout your stay. * Aspirin Most patients will be required to take Aspirin 325mg twice a day for 6 weeks after surgery. This is obtained [id number] and a prescription is not necessary. * Other medications may be prescribed for specific circumstances. If you have any questions, please call the office at . * Resume previous home medications unless otherwise instructed TEDs/Elastic Stockings: The white elastic stockings help limit swelling and prevent blood clots from forming in your legs. The more you wear them, the more they work. Wear them for six weeks. Dressing Care: You will likely have a purple VAC dressing after surgery. This dressing will keep the incision dry and promote early healing. After about 8 days the batteries will wear out and the VAC will lose suction. Simply remove the dressing at that time and throw everything away, including the small suction machine. Then, you may leave the gwendolyn open to air or cover them with a dry dressing so they do not rub on your pants. The gwendolyn will be removed at your 2 week follow-up appointment. Showering: You may shower immediately with the purple VAC dressing. Let the shower spray hit your opposite side and slowly pat the plastic dry. Do not soak the dressing. After the dressing is removed you may shower normally with the gwendolyn exposed. Let soapy water run over the gwendolyn and pat them dry. Things To Watch For: * Drainage from the incision site that occurs more than one week after your surgery. * Increased redness at the incision site. * Fever above 102 degrees Fahrenheit. * Unusual chest pain or shortness of breath. * [facility] at with any of the above problems Follow-Up Visit: Follow-up with Dr. Alcantara 2 weeks after your day of surgery. An appointment was probably scheduled when you signed-up for surgery in the office. If you have any questions call Office Instructions: More detailed instructions as well as Frequently Asked Questions were provided in a folder by our office when you signed-up for surgery. Please review these instructions when you get home. If you have any further questions or concerns, please feel free to call the office at [phone] Current Hospital Diet Patient's current hospital diet: Regular Diet Discharge Diet Recommended Diet: Regular Diet Procedures Procedures Performed: Right Total Hip Arthroplasty, Uncemented Pending Studies Studies pending at discharge: no Medical Emergencies . Who to Call and When: Medical Emergencies: If at any time you feel your situation is an emergency, please call [phone] immediately. . Non-Emergent Contact Non-Emergency issues call your: Surgeon Call Non-Emergent contact if: wound has increased drainage, wound has increased redness . "Provider Documentation" section prepared by Ezequiel Alcantara. .
--- NOTE | 2017-10-22 09:58 | PROGRESS NOTE ---
DATE: 10/22/2017 CHIEF COMPLAINT: Status post right total hip arthroplasty postop day #2. PROGRESS: Marivel was seen and examined at bedside today. Overall, she is doing much better today. She was able to ambulate yesterday with physical therapy. Her pain is much better controlled. She has no complaints. PHYSICAL EXAMINATION: RIGHT HIP: The Prevena VAC dressing is to suction. Her leg lengths are equal. She was sitting upright in a chair when I came in the room. She is neurovascularly intact. Vital signs are all stable on room air. She is voiding on her own, has not had a bowel movement yet. IMPRESSION: Status post right total hip arthroplasty postop day #2. PLAN: At this point, she is doing well as expected. We will keep her on the Dilaudid for pain control and she is on aspirin for DVT prophylaxis. She already has Flexeril at home. She is set up to be seen by [facility] starting tomorrow. We will discharge her to home later this morning.
--- NOTE | 2017-10-22 10:20 | DISCHARGE SUMMARY ---
DISCHARGE DIAGNOSIS: Primary osteoarthritis of the right hip. PROCEDURE: Right total hip arthroplasty on 10/20/[address] Ezequiel Alcantara. DISCHARGE INSTRUCTIONS: 1. Aspirin 325 mg twice a day for 6 weeks. 2. COURTNEY hose stockings for 6 weeks. 3. Dilaudid 4 mg every 4 hours as needed for pain. 4. Acyclovir 800 mg as needed. 5. Albuterol 2 puffs every 4 hours as needed. 6. Pulmicort 1 puff daily. 7. Flexeril 5-10 mg at night as needed. 8. Cymbalta 40 mg daily. 9. Flonase 50 mcg twice a day. 10. Indapamide 2.5 mg daily. 11. Ativan 0.5 mg at night. 12. Cozaar 100 mg at night. 13. Singulair 10 mg at night. 14. Prilosec 20 mg twice a day. 15. Potassium 10 mEq daily. 16. Trazodone 150 mg at night. 17. Continue all other vitamins, minerals and [id number] supplementations. HOSPITAL COURSE: Marivel is a pleasant 61-year-old female who presented to my office with chronic right hip and groin pain. X-rays and clinical examination were diagnostic for primary osteoarthritis of the right hip. After failing conservative treatment, she elected to undergo a right total hip arthroplasty. On 10/20/2017, she arrived to [facility] and underwent a right hip replacement without complication. She had a spinal anesthetic. Postoperatively, she was started on aspirin for DVT prophylaxis and discharged to general orthopedic floor. Her hospital course was generally uneventful. On postop day #1, her H&H was stable at 10.0 and 29.2. She was able to get up and ambulate some with physical therapy but she was having a lot of pain and soreness in her hip. I did adjust her pain medications. On postop day #2, she was doing much better. Pain was better controlled. She ambulated well with physical therapy and was subsequently discharged to home with the above instructions and [facility].
[2017-10-22 10:34] VITALS: BP 119/76; PULSE 72; TEMP 36.8; O2SAT 95
== END 2017-10-22 11:20 | disposition home or self-care (01) | DRG 470 ==
LOC: C.ACU 06:50 → C.3E 09:00 → ENRESERV 12:47
PROVIDERS: ADMIT Orthopaedic Surgery; ATTEND Orthopaedic Surgery
PROC: 0SR904Z Replacement of Right Hip Joint with Ceramic on Polyethylene Synthetic Substitute, Open Approach (ICD-10-PCS; principal; 2017-10-20 09:20)
DX: M16.11 Unilateral primary osteoarthritis, right hip (principal); E66.9 Obesity, unspecified; I10 Essential (primary) hypertension; Z96.651 Presence of right artificial knee joint; Z85.820 Personal history of malignant melanoma of skin; K21.9 Gastro-esophageal reflux disease without esophagitis; J45.909 Unspecified asthma, uncomplicated; Z82.49 Family history of ischemic heart disease and other diseases of the circulatory system; Z68.37 Body mass index [BMI] 37.0-37.9, adult

== ENCOUNTER → 2017-11-30 | Outpatient (CLI) | payer OTHER ==
[~2017-11-30] MED LIST changes: -ACETAMINOPHEN 500 MG TAB PO SCH; +ASPEC325 PO; -CEFAZOLIN 2000MG IV PUSH 15 ML IV SCH; +CYCL5TAB PO; +DLD/2 PO; -FAMOTIDINE 20 MG TAB PO SCH; -GABAPENTIN 300 MG CAP PO SCH; -LACTATED RINGER'S 1000ML 1,000 ML IV SCH; -LACTATED RINGER'S 1000ML IV SCH; -ROPIVACAINE 5MG/ML 30 ML 150 MG, BUPIVACAINE 0.5% MPF INJ 30 ML, EpINEphrine HCL INJ 0.... INFIL SCH
--- NOTE | 2017-11-30 12:41 | MAMMOGRAPHY REPORT ---
BILATERAL DIGITAL SCREENING MAMMOGRAM TOMOSYNTHESIS WITH CAD: 11/30/2017 CLINICAL HISTORY: Routine screening. Patient has no complaints. TECHNIQUE: Breast tomosynthesis in addition to standard 2D mammography was performed. Current study was also evaluated with a Computer Aided Detection (CAD) system. COMPARISON: Comparison is made to exams dated: 11/29/2016 mammogram, 11/24/2015 mammogram, 10/21/2015 ul trasound, 08/05/2015 ultrasound, 08/05/2015 mammogram, and 11/18/2014 mammogram - [facility]ter. BREAST COMPOSITION: There are scattered areas of fibroglandular density in both breasts. FINDINGS: No suspicious masses, calcifications, or areas of architectural distortion are noted in ei ther breast. There has been no significant interval change compared to prior exams. IMPRESSION: ACR BI-RADS CATEGORY 1: NEGATIVE There is no mammographic evidence of malignancy. A 1 year screening mammogram is recommended. The pa tient will receive written notification of the results. Approximately 10% of breast cancers are not detected with mammography. A negative mammographic report should not delay biopsy if a clinically suggestive mass is present. Delores Unger M.D. ah/:11/30/2017 12:29:04 Police Chief Deputy: Radhika YOUSIF(Kade)(M), [facility] letter sent: Normal 1/2 BI-RADS Code: ACR BI-RADS Category 1: Negative
== END | disposition home or self-care (01) ==
LOC: C.MAMM 10:21
PROVIDERS: ATTEND Obstetrics & Gynecology
DX: Z12.31 Encounter for screening mammogram for malignant neoplasm of breast (principal)